=== PATIENT | female | born 1990 | race Caucasian/White ===

== ENCOUNTER 2017-02-20 22:55 | Emergency (ER) | payer MEDICAID, OTHER ==
[~2017-02-20] VITALS: Ht 165.1 cm; Wt 120.4 kg
[2017-02-20 22:58] VITALS: BP 132/85
[2017-02-21 00:13] LABS: PATH.CAST-FLAG NOT PRESENT; SPERM-FLAG NOT PRESENT; SRC-FLAG NOT PRESENT; XTAL-FLAG NOT PRESENT; YLC-FLAG NOT PRESENT
== END 2017-02-21 07:08 | disposition home or self-care (01) ==
LOC: ED 02-21 01:46
DX: O23.12 Infections of bladder in pregnancy, second trimester (principal); Z3A.22 22 weeks gestation of pregnancy
CPT/HCPCS: 81001; 87077; 87086; 99284

== ENCOUNTER 2017-04-01 02:27 | Inpatient (IN) | payer MEDICAID ==
[~2017-04-01] VITALS: Ht 165.1 cm; Wt 122.7 kg
[2017-04-01] MEDS ORDERED: ONDANSETRON 2MG/ML, 2ML ONE ×2 (03:18→16:06)
[2017-04-01] MEDS ORDERED: ONDANSETRON 2MG/ML, 2ML IVPush PRN ×2 (03:30→07:00)
[2017-04-01] MEDS ORDERED: LACTATED RINGERS 1,000 ML IVBOLUS ONE (03:30)
[2017-04-01 03:51] LABS: ASPARTATE AMINO TRANSFERASE 74 U/L (15-37); BLOOD UREA NITROGEN 9 mg/dL (7-18)
[2017-04-01] MEDS ORDERED: LACTATED RINGERS 1,000 ML IV SCH (04:30)
[2017-04-01] MEDS ORDERED: SODIUM CITRATE/CITRIC ACID 30 ML UDC ONE (05:23)
[2017-04-01] MEDS ORDERED: METOCLOPRAMIDE 5 MG/ML, 2ML ONE ×2 (05:24→16:06)
[2017-04-01] MEDS ORDERED: OXYTOCIN 30U/ 0.9% NaCL 500ML 500 ML ONE ×2 (05:35→17:29)
[2017-04-01] MEDS ORDERED: FENTANYL PF 100 MCG/2ML ONE ×4 (05:37→07:19)
[2017-04-01] MEDS ORDERED: CLINDAMYCIN PMX 900MG/50ML 50 ML ONE (05:50)
[2017-04-01 06:30] LABS: DAU SCREEN DISCLAIMER
[2017-04-01] MEDS ORDERED: CALCIUM CARBONATE 500 MG TAB.CHEW PO PRN (06:30)
[2017-04-01] MEDS ORDERED: METOCLOPRAMIDE 5 MG/ML, 2ML IV PRN (06:30)
[2017-04-01] MEDS ORDERED: MISOPROSTOL 200 MCG TABLET PR PRN (06:30)
[2017-04-01] MEDS ORDERED: RHOGAM FROM BLOOD BANK 1 NOTE EA IM/IV ONE (06:30)
[2017-04-01] MEDS ORDERED: ONDANSETRON 2MG/ML, 2ML IV PRN ×2 (06:30→07:00)
[2017-04-01] MEDS ORDERED: SIMETHICONE 80 MG CHEW TAB PO PRN (06:30)
[2017-04-01] MEDS ORDERED: BISACODYL 10 MG SUPP PR PRN (06:30)
[2017-04-01] MEDS ORDERED: OXYcodone IR 5MG TABLET PO PRN (06:30)
[2017-04-01] MEDS ORDERED: CARBOPROST TROMETHAMINE 250 MCG/ML, 1ML IM PRN (06:30)
[2017-04-01] MEDS ORDERED: MEASLES,MUMPS&RUBELLA VACC/PF 0.5 ML SQ-VACC PRN (06:30)
[2017-04-01] MEDS: FENTANYL PF 100 MCG/2ML IV PRN ×3 (06:41→07:59)
[2017-04-01] MEDS ORDERED: hydrALAzine 20 MG/ML, 1ML IV PRN ×2 (07:00)
[2017-04-01] MEDS ORDERED: OXYcodone 5 MG/5 ML ORAL.SOL UDC PO PRN (07:00)
[2017-04-01] MEDS ORDERED: MEPERIDINE/PF 25MG/0.5ML IV PRN (07:00)
[2017-04-01] MEDS ORDERED: EPHEDRINE 50 MG/ML, 1ML IVPush PRN (07:00)
[2017-04-01] MEDS ORDERED: MIDAZOLAM 1 MG/ML, 2ML IV PRN (07:00)
[2017-04-01] MEDS ORDERED: PROMETHAZINE 25 MG/ML, 1ML IV PRN ×2 (07:00)
[2017-04-01] MEDS ORDERED: ALBUTEROL SULFATE 2.5 MG/3 ML NPPB PRN (07:00)
[2017-04-01] MEDS ORDERED: PLEASE ENTER HEIGHT AND WEIGHT MC SCH (07:00)
[2017-04-01] MEDS ORDERED: MIDAZOLAM 1 MG/ML, 5ML IV PRN (07:00)
[2017-04-01] MEDS ORDERED: HYDROmorphone 2 MG/ML, 1ML IV PRN (07:00)
[2017-04-01] MEDS ORDERED: LABETALOL 5MG/ML, 20ML IV PRN (07:00)
[2017-04-01] MEDS ORDERED: MEPERIDINE/PF 25MG/0.5ML IVPush PRN (07:00)
[2017-04-01] MEDS ORDERED: HYDROcodone/APAP 7.5-325MG/15ML UDC PO PRN ×2 (07:00)
[2017-04-01] MEDS ORDERED: CALCIUM GLUCONATE 0.46MEQ/1ML IVPush ONE (07:00)
[2017-04-01] MEDS ORDERED: EPHEDRINE 50 MG/ML, 1ML IV PRN (07:00)
[2017-04-01] MEDS ORDERED: HYDROmorphone 1 MG/ML, 1ML IV PRN (07:00)
[2017-04-01] MEDS ORDERED: FENTANYL PF 100 MCG/2ML IVPush PRN (07:00)
[2017-04-01] MEDS ORDERED: MAGNESIUM SULFATE PMX 4GM/100M 100 ML IVPB ONE (07:00)
[2017-04-01] MEDS ORDERED: MAGNESIUM SULF. PMX 20GM/500ML 500 ML IV ONE ×2 (07:18→15:35)
[2017-04-01] MEDS: MAGNESIUM SULF. PMX 20GM/500ML 500 ML IV PRN ×2 (08:20→15:37)
[2017-04-01] MEDS: OXYTOCIN 30U/ 0.9% NaCL 500ML 500 ML IV SCH ×2 (08:22→18:13)
[2017-04-01] MEDS: PRENATAL VIT/IRON/FA 1 EACH TABLET PO SCH (09:00)
[2017-04-01 12:36] LABS: ASPARTATE AMINO TRANSFERASE 59 U/L (15-37); BLOOD UREA NITROGEN 7 mg/dL (7-18)
[2017-04-01] MEDS ORDERED: OXYcodone ORAL.CONC 20 MG/ML PO PRN (15:00)
[2017-04-01] MEDS: OXYcodone 5 MG/5 ML ORAL.SOL UDC PO PRN ×2 (15:50→20:16)
[2017-04-01] MEDS ORDERED: OXYTOCIN 10 UNITS/ML, 1ML ONE (16:06)
[2017-04-01] MEDS ORDERED: SUCCINYLCHOLINE 20 MG/ML, 10ML ONE (16:06)
[2017-04-01] MEDS ORDERED: PROPOFOL 10 MG/ML, 20ML ONE (16:06)
[2017-04-01] MEDS ORDERED: CEFAZOLIN 1,000 MG ONE (16:06)
[2017-04-01] MEDS ORDERED: DEXAMETHASONE 4 MG/ML, 1ML ONE (16:06)
[2017-04-01] MEDS ORDERED: OXYcodone 5 MG/5 ML ORAL.SOL UDC ONE (20:05)
[2017-04-02] MEDS ORDERED: OXYcodone 5 MG/5 ML ORAL.SOL UDC ONE ×3 (00:55→15:11)
[2017-04-02] MEDS ORDERED: OXYcodone IR 5MG TABLET ONE ×2 (01:07→05:54)
[2017-04-02] MEDS: OXYcodone IR 5MG TABLET PO PRN ×3 (01:10→19:32)
[2017-04-02] MEDS: OXYTOCIN 30U/ 0.9% NaCL 500ML 500 ML IV SCH ×3 (02:25→22:25)
[2017-04-02] MEDS ORDERED: MAGNESIUM SULF. PMX 20GM/500ML 500 ML IV ONE (03:03)
[2017-04-02] MEDS: MAGNESIUM SULF. PMX 20GM/500ML 500 ML IV PRN (03:14)
[2017-04-02] MEDS ORDERED: LABETALOL 5MG/ML, 20ML ONE (05:22)
[2017-04-02] MEDS: LABETALOL 5MG/ML 40ML VIAL IV PRN ×4 (05:28→06:19)
[2017-04-02 05:41] LABS: ASPARTATE AMINO TRANSFERASE 58 U/L (15-37); BLOOD UREA NITROGEN 7 mg/dL (7-18)
[2017-04-02] MEDS ORDERED: hydrALAzine 20 MG/ML, 1ML ONE (06:36)
[2017-04-02] MEDS ORDERED: ONDANSETRON 2MG/ML, 2ML ONE (07:07)
[2017-04-02] MEDS ORDERED: IBUPROFEN 200 MG TABLET PO PRN (08:30)
[2017-04-02] MEDS ORDERED: IBUPROFEN 600 MG TABLET ONE (08:34)
[2017-04-02] MEDS ORDERED: LABETALOL 200 MG TABLET ONE (08:35)
[2017-04-02] MEDS: LABETALOL 200 MG TABLET PO SCH ×2 (08:38→18:10)
[2017-04-02] MEDS: PRENATAL VIT/IRON/FA 1 EACH TABLET PO SCH (09:00)
[2017-04-02] MEDS ORDERED: DOCUSATE 100 MG CAPSULE ONE (10:16)
[2017-04-02] MEDS: DOCUSATE 100 MG CAPSULE PO PRN ×2 (10:18→19:32)
[2017-04-02 16:10] VITALS: BP 118/69
[2017-04-02 19:45] VITALS: BP 121/80
[2017-04-03] MEDS: OXYcodone IR 5MG TABLET PO PRN ×6 (00:10→21:57)
[2017-04-03 00:14] VITALS: BP 126/75
[2017-04-03 05:11] VITALS: BP 159/91
[2017-04-03 07:25] VITALS: BP 123/70
[2017-04-03] MEDS: OXYTOCIN 30U/ 0.9% NaCL 500ML 500 ML IV SCH ×2 (08:25→18:25)
[2017-04-03] MEDS: PRENATAL VIT/IRON/FA 1 EACH TABLET PO SCH (08:27)
[2017-04-03] MEDS: LABETALOL 200 MG TABLET PO SCH ×2 (08:28→17:50)
[2017-04-03] MEDS: DOCUSATE 100 MG CAPSULE PO PRN ×2 (08:28→21:57)
[2017-04-03 13:30] VITALS: BP 127/84
[2017-04-03] MEDS ORDERED: OXYC-302 PO (16:19)
[2017-04-03] MEDS ORDERED: IBUP-1222 PO (16:20)
[2017-04-03] MEDS ORDERED: DOCU-30 PO (16:28)
[2017-04-03] MEDS ORDERED: LABE200T3 PO (16:29)
[2017-04-03 17:51] VITALS: BP 130/88
[2017-04-03 22:00] VITALS: BP 131/75
[2017-04-04] MEDS: OXYcodone IR 5MG TABLET PO PRN ×5 (02:01→20:50)
[2017-04-04 02:08] VITALS: BP 142/88
[2017-04-04] MEDS: LABETALOL 200 MG TABLET PO SCH ×2 (07:38→18:08)
[2017-04-04] MEDS: PRENATAL VIT/IRON/FA 1 EACH TABLET PO SCH (07:38)
[2017-04-04] MEDS: DOCUSATE 100 MG CAPSULE PO PRN ×2 (07:38→20:50)
[2017-04-04 07:40] VITALS: BP 162/108
[2017-04-04 16:00] VITALS: BP 152/90
[2017-04-04 19:45] VITALS: BP 159/94
[2017-04-04] MEDS ORDERED: LORazepam 0.5MG TABLET PO PRN (22:00)
[2017-04-05] MEDS: OXYcodone IR 5MG TABLET PO PRN ×3 (00:36→10:47)
[2017-04-05 00:38] VITALS: BP 150/84
[2017-04-05] MEDS: LABETALOL 200 MG TABLET PO SCH (07:57)
[2017-04-05] MEDS: DOCUSATE 100 MG CAPSULE PO PRN (07:57)
[2017-04-05 08:00] VITALS: BP 114/59
== END 2017-04-05 14:00 | disposition home or self-care (01) | DRG 765 ==
LOC: LDOP 02:27 → LDIP 03:15 → OBSVTOIN 03:15 → 2NW 04-02 16:38
PROVIDERS: ADMIT Obstetrics & Gynecology; ATTEND Obstetrics & Gynecology
PROC: 10D00Z1 Extraction of Products of Conception, Low, Open Approach (ICD-10-PCS; principal; 2017-04-01)
DX: O60.12X0 Preterm labor second trimester with preterm delivery second trimester, not applicable or unspecified (principal); O99.12 Other diseases of the blood and blood-forming organs and certain disorders involving the immune mechanism complicating childbirth; O77.0 Labor and delivery complicated by meconium in amniotic fluid; D72.829 Elevated white blood cell count, unspecified; O99.89 Other specified diseases and conditions complicating pregnancy, childbirth and the puerperium; D72.819 Decreased white blood cell count, unspecified; O76 Abnormality in fetal heart rate and rhythm complicating labor and delivery; Z37.0 Single live birth; O14.24 HELLP syndrome, complicating childbirth; O26.892 Other specified pregnancy related conditions, second trimester; Z67.21 Type B blood, Rh negative; Z87.440 Personal history of urinary (tract) infections; Z3A.27 27 weeks gestation of pregnancy
CPT/HCPCS: 36415; 74000; 80053; 80307; 81001; 82248; 82803; 83735; 84550; 85025; 85461; 86704; 86706; 86708; 86803; 86850; 86900; 87070; 87075; 87086; 87205; 87340; 88305; 93005; J0690; J1100; J2270; J2405; J2704; J3010; J0330; J0360; J2590; J2765; J3475; J7120